=== PATIENT | female | born 1945 | race African-American/Black ===

== ENCOUNTER 2018-02-22 06:18 | Observation (INO) | payer OTHER ==
[2018-02-22 06:33] VITALS: BMI 24.0
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
[2018-02-22] MEDS ORDERED: ASPIRIN 325 MG TABLET PO ONE (08:25)
[2018-02-22] MEDS ORDERED: ASPIRIN 325 MG TABLET ONE (08:31)
[2018-02-22 08:56] LABS: HEMATOCRIT 30.5 % (32.4-45.2); HEMOGLOBIN 10.3 GM/dL (10.7-15.3); MCH 33.1 pg (25.7-33.7); MCHC 33.6 g/dl (32.0-36.0); MEAN CELL VOLUME 98.5 fl (80-96); MEAN PLT VOLUME 10.4 fl (7.5-11.1); PLATELET COUNT 235 K/MM3 (134-434); RDW 12.6 % (11.6-15.6); WHITE BLOOD COUNT 3.9 K/mm3 (4.0-10.0)
[2018-02-22 09:09] LABS: INR 1.79 (0.82-1.09); PROTHROMBIN TIME (PATIENT) 20.2 SEC (9.7-13.0)
[2018-02-22 09:12] LABS: ACTIVATED PTT 21.9 SECONDS (25.2-36.5)
[2018-02-22 09:57] LABS: CALCIUM 8.5 mg/dL (8.5-10.1); CHLORIDE 109 mmol/L (98-107); POTASSIUM 4.5 mmol/L (3.5-5.1); SODIUM 141 mmol/L (136-145)
[2018-02-22] MEDS: ACYCLOVIR 400 MG TABLET PO SCH ×2 (10:01→10:16)
[2018-02-22 10:06] LABS: ALK PHOS 56 U/L (45-117); ANION GAP 8 (8-16); BILIRUBIN,TOTAL 0.2 mg/dL (0.2-1.0); BLOOD UREA NITROGEN 36 mg/dL (7-18); CO2 24 mmol/L (21-32); CREATININE 1.5 mg/dL (0.55-1.02); GLUCOSE,RANDOM 110 mg/dL (74-106); SGOT/AST 34 U/L (15-37); SGPT/ALT 29 U/L (12-78); TOT PROT 7.8 g/dl (6.4-8.2)
[2018-02-22] MEDS ORDERED: valACYclovir HCL 1000 MG TABLET PO SCH (11:30)
[2018-02-22] MEDS ORDERED: SODIUM CHLORIDE 0.45% 1,000 ML IV SCH (11:30)
[2018-02-22] MEDS ORDERED: valACYclovir HCL 500 MG TABLET (FP) PO SCH (12:34)
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
[2018-02-22] MEDS ORDERED: valACYclovir HCL 500 MG TABLET (FP) ONE (12:43)
[2018-02-22] MEDS ORDERED: HEPARIN NA (PORCINE) 5,000 UNITS/ML 1ML VIAL IVPUSH PRN ×2 (13:27)
[2018-02-22] MEDS ORDERED: HEPARIN INFUSION - 25,000 UNITS/500 ML INFUS.BAG IVPB ONE (13:36)
[2018-02-22] MEDS: HEPARIN - 25,000 UNIT in SODIUM CHLORIDE 495 ML IV SCH (13:49)
[2018-02-22] MEDS: INSULIN SLIDING SCALE (NOVOLOG) 1 VIAL SQ SCH ×2 (17:03→21:37)
[2018-02-22] MEDS ORDERED: WARFARIN NA 10 MG TABLET (FP) PO SCH (18:00)
[2018-02-22] MEDS ORDERED: WARFARIN NA 5 MG TABLET (UD) ONE (18:14)
[2018-02-23] MEDS: INSULIN SLIDING SCALE (NOVOLOG) 1 VIAL SQ SCH ×2 (06:22→12:03)
[2018-02-23 07:11] LABS: HEMATOCRIT 29.8 % (32.4-45.2); HEMOGLOBIN 9.9 GM/dL (10.7-15.3); MCH 32.4 pg (25.7-33.7); MCHC 33.1 g/dl (32.0-36.0); MEAN CELL VOLUME 97.8 fl (80-96); MEAN PLT VOLUME 9.4 fl (7.5-11.1); PLATELET COUNT 151 K/MM3 (134-434); RBC 3.05 M/mm3 (3.60-5.2); RDW 12.8 % (11.6-15.6); WHITE BLOOD COUNT 3.5 K/mm3 (4.0-10.0)
[2018-02-23 07:25] LABS: INR 2.49 (0.82-1.09); PROTHROMBIN TIME (PATIENT) 28.1 SEC (9.7-13.0)
[2018-02-23 07:58] LABS: ACTIVATED PTT 125.1 SECONDS (25.2-36.5)
[2018-02-23 08:51] LABS: ALBUMIN 3.6 g/dl (3.4-5.0); ALK PHOS 54 U/L (45-117); ANION GAP 9 (8-16); BILIRUBIN,TOTAL 0.2 mg/dL (0.2-1.0); BLOOD UREA NITROGEN 29 mg/dL (7-18); CALCIUM 8.3 mg/dL (8.5-10.1); CHLORIDE 113 mmol/L (98-107); CO2 22 mmol/L (21-32); CREATININE 1.4 mg/dL (0.55-1.02); GLUCOSE,RANDOM 90 mg/dL (74-106); POTASSIUM 4.6 mmol/L (3.5-5.1); SGOT/AST 29 U/L (15-37); SGPT/ALT 28 U/L (12-78); SODIUM 144 mmol/L (136-145); TOT PROT 7.4 g/dl (6.4-8.2)
--- NOTE | 2018-02-23 09:14 | EKG ---
Test Reason : Blood Pressure : / mmHG Vent. Rate : 061 BPM Atrial Rate : 061 BPM P-R Int : 172 ms QRS Dur : 086 ms QT Int : 416 ms P-R-T Axes : 039 050 -28 degrees QTc Int : 418 ms NORMAL SINUS RHYTHM NONSPECIFIC T WAVE ABNORMALITY ABNORMAL ECG WHEN COMPARED WITH ECG OF 15-OCT-2014 10:10, COMPARED TO EKG NO SIGNIFICANT CHANGE IS FOUND Confirmed by JOSIE BRODY MD ([id number]) on 02/23/2018 9:14:11 AM Referred By: Confirmed By:JOSIE BRODY MD
[2018-02-23] MEDS ORDERED: metoPROLOL SUCCINATE 25 MG TAB.SR.24H (FP) PO SCH (10:00)
[2018-02-23] MEDS ORDERED: ASPIRIN 81 MG CHEWABLE TABLETS PO SCH (10:00)
[2018-02-23] MEDS ORDERED: LISINOPRIL 5 MG TABLET (FP) PO SCH (10:00)
[2018-02-23] MEDS ORDERED: PANTOPRAZOLE 40 MG TABLET (FP) PO SCH (10:00)
[2018-02-23] MEDS ORDERED: FUROSEMIDE 20 MG TABLET (FP) PO SCH (10:00)
[2018-02-23] MEDS ORDERED: ZINC OXIDE 20% TOPICAL OINTMENT 30 GM TUBE TP SCH (13:00)
[2018-02-23] MEDS: HEPARIN - 25,000 UNIT in SODIUM CHLORIDE 495 ML IV SCH (14:05)
[2018-02-23 14:10] VITALS: BP 147/73; PULSE 64; TEMP 98.2
--- NOTE | 2018-02-23 14:42 | DS ---
Physical Exam: SUBJECTIVE: Patient seen and examined at bedside. Pain well-controlled. No other complaints. OBJECTIVE: Vital Signs Period Temp Pulse Resp BP Sys/Leung Pulse Ox Last 24 Hr 97.9 F-98.5 F 51-65 16-20 121-158/49-87 100-100 PHYSICAL EXAM GENERAL: The patient is awake, alert, and fully oriented, in no acute distress. HEAD: Normal with no signs of trauma. EYES: PERRLA, EOMI, sclera anicteric, conjunctiva clear. ENT: Ears normal, nares patent, moist mucous membranes. NECK: Trachea midline, full range of motion, supple, no cervical LAD. LUNGS: Breath sounds equal, clear to auscultation bilaterally, no wheezes, no crackles, no accessory muscle use. HEART: Regular rate and rhythm, S1, S2 without murmur, rub or gallop. ABDOMEN: Soft, nontender, nondistended, normoactive bowel sounds, no guarding, no rebound, no hepatosplenomegaly, no masses. EXTREMITIES: 2+ pulses, warm, well-perfused, no edema. NEUROLOGICAL: Cranial nerves II through XII grossly intact. 5/5 strength x 4 extremities. Sensorium intact. Normal speech, gait not observed. PSYCH: Normal mood, normal affect. SKIN: Dermatitis of skin folds inferior to breasts b/l LABS Laboratory Results - last 24 hr 02/22/18 02/22/18 02/22/18 09:21 16:30 16:59 WBC RBC Hgb Hct MCV MCH MCHC RDW Plt Count MPV PT with INR INR PTT (Actin FS) Sodium Potassium Chloride Carbon Dioxide Anion Gap BUN Creatinine Creat Clearance w eGFR POC Glucometer 128.72243 Random Glucose Calcium Total Bilirubin AST ALT Alkaline Phosphatase CK-MB (CK-2) Troponin I 0.05 Total Protein Albumin 02/22/18 02/22/18 02/22/18 20:10 21:00 21:36 WBC RBC Hgb Hct MCV MCH MCHC RDW Plt Count MPV PT with INR INR PTT (Actin FS) 96.1 H D Sodium Potassium Chloride Carbon Dioxide Anion Gap BUN Creatinine Creat Clearance w eGFR POC Glucometer 110 Random Glucose Calcium Total Bilirubin AST ALT Alkaline Phosphatase CK-MB (CK-2) Troponin I 0.05 Total Protein Albumin 07/09/18 07/09/18 07/09/18 02:00 05:58 06:00 WBC 3.5 L RBC 3.05 L Hgb 9.9 L Hct 29.8 L MCV 97.8 H MCH 32.4 MCHC 33.1 RDW 12.8 Plt Count 151 D MPV 9.4 PT with INR INR PTT (Actin FS) Sodium Potassium Chloride Carbon Dioxide Anion Gap BUN Creatinine Creat Clearance w eGFR POC Glucometer 88 Random Glucose Calcium Total Bilirubin AST ALT Alkaline Phosphatase CK-MB (CK-2) Troponin I 0.06 H Total Protein Albumin 02/23/18 02/23/18 02/23/18 06:00 06:00 12:03 WBC RBC Hgb Hct MCV MCH MCHC RDW Plt Count MPV PT with INR 28.10 H INR 2.49 H D PTT (Actin FS) 125.1 H D Sodium 144 Potassium 4.6 Chloride 113 H Carbon Dioxide 22 Anion Gap 9 BUN 29 H Creatinine 1.4 H Creat Clearance w eGFR 37.18 POC Glucometer 85 Random Glucose 90 Calcium 8.3 L Total Bilirubin 0.2 AST 29 ALT 28 Alkaline Phosphatase 54 CK-MB (CK-2) Troponin I Total Protein 7.4 Albumin 3.6 HOSPITAL COURSE: Date of Admission:02/22/18 Patient is a 72 y/o F w/ PMHx HTN, HLD, DM2, mitral valve repair on coumadin, GIST tumor, afib, and CHF, p/w sharp b/l chest pain x 3 days, 9-10 in severity on presentation. EKG showed NSR, serial troponins negative. Dermatitis was noted at the skin fold under the breasts b/l. Patient was given acyclovir and valacyclovir on initial suspicion of herpes zoster, but this diagnosis was inconsistent with clinical evaluation. Patient is on coumadin for AFib/mitral valve repair, INR subtherapeutic on presentation, INR corrected to therapeutic range with administration of 2 heparin boluses + heparin drip, home dose of 10mg coumadin also given. Patient was given NS IVF. Pain gradually resolved. Patient was discharged after 1 day with referrals to her PCP and sporting goods salesperson. Date of Discharge: 02/23/18 Minutes to complete discharge: 41 <Melvin Santos - Last Filed: 02/23/18 14:45> Physical Exam: Patient is comfortable with no acute distress, Patient was prescribed Zinc oxide to be used under her breast. Also on admission patient had a sub- therapeutic INR, started on IV heparin drip, and given coumadin 10mg ,INR is 2.47, patient has no further chest pain. Patient can be discharged home and follow with her own sporting goods salesperson. <Kaden Sesay - Last Filed: 02/23/18 18:39> Discharge Summary Reason For Visit: HERPES ZOSTER, ACUTE CORONARY SYNDROME, HTN,ECOLI Current Active Problems Atrial fibrillation (Chronic) HTN (hypertension) (Chronic) - Home Medications Comprehensive Discharge Medication List: Ambulatory Orders Aspirin [ASA -] 81 mg PO DAILY 09/11/14 Furosemide [Lasix -] 20 mg PO DAILY #30 tablet 10/26/14 Metoprolol Succinate [Toprol XL -] 25 mg PO DAILY #30 tab.sr.24h 10/26/14 Aspirin [ASA -] 81 mg PO DAILY tab.chew 02/23/18 Imatinib Mesylate [Gleevec] 400 mg PO ACDIN 02/23/18 Lisinopril [Prinivil] 10 mg PO DAILY 02/23/18 Pravastatin Sodium [Pravachol -] 20 mg PO HS 02/23/18 Sitagliptin Phosphate [Januvia] 25 mg PO ACBK 02/23/18 Spironolactone 25 mg PO DAILY 02/23/18 Warfarin Na [Coumadin -] 10 mg PO DAILY@1800 tablet 02/23/18 Zinc Oxide 1 applic TP BID #1 tube 02/23/18 <Melvin Santos - Last Filed: 02/23/18 14:45> - Home Medications Comprehensive Discharge Medication List: Ambulatory Orders Aspirin [ASA -] 81 mg PO DAILY 09/11/14 Furosemide [Lasix -] 20 mg PO DAILY #30 tablet 10/26/14 Metoprolol Succinate [Toprol XL -] 25 mg PO DAILY #30 tab.sr.24h 10/26/14 Aspirin [ASA -] 81 mg PO DAILY tab.chew 02/23/18 Imatinib Mesylate [Gleevec] 400 mg PO ACDIN 02/23/18 Lisinopril [Prinivil] 10 mg PO DAILY 02/23/18 Pravastatin Sodium [Pravachol -] 20 mg PO HS 02/23/18 Sitagliptin Phosphate [Januvia] 25 mg PO ACBK 02/23/18 Spironolactone 25 mg PO DAILY 02/23/18 Warfarin Na [Coumadin -] 10 mg PO DAILY@1800 tablet 02/23/18 Zinc Oxide 1 applic TP BID #1 tube 02/23/18 <Kaden Sesay - Last Filed: 02/23/18 18:39> Condition: Stable - Instructions Diet, Activity, Other Instructions: You were hospitalized due to chest pain. You were given standard testing that showed that your chest pain was not due to a heart attack. You were given medications to relieve the skin irritation in the affected area. Your labs also showed that your anticoagulation medication needed to be adjusted, which was done. Referrals Please make an appointment with your sporting goods salesperson, Dr. Soares, within one week of discharge. A referral has also been made to your primary medical doctor , Dr. Wolf. Please also make an appointment with him within one week of discharge. Medical recommendations Please use the zinc oxide topical ointment you have been prescribed in the affected areas twice per day. Please drink plenty of fluids. If you experience any worsening chest pain, pain when breathing, difficulty breathing, change in vision or other sensation, or any other new symptoms, please return to the Emergency Department immediately. Referrals: Dionte Wolf MD [Primary Care Provider] - 1 Week Disposition: HOME This patient is new to me today: No Emergency Visit: No Critical Care patient: No - Discharge Referral Referred to [facility] Med P.C[facility] No <Melvin Santos - Last Filed: 02/23/18 14:45>
--- NOTE | 2018-02-23 15:04 | EKG ---
Test Reason : Blood Pressure : / mmHG Vent. Rate : 064 BPM Atrial Rate : 064 BPM P-R Int : 180 ms QRS Dur : 084 ms QT Int : 422 ms P-R-T Axes : -27 035 262 degrees QTc Int : 435 ms NORMAL SINUS RHYTHM T WAVE ABNORMALITY, CONSIDER INFERIOR ISCHEMIA T WAVE ABNORMALITY, CONSIDER ANTEROLATERAL ISCHEMIA ABNORMAL ECG WHEN COMPARED WITH ECG OF 22-FEB-2018 06:30, T WAVE VARIATION Confirmed by EVELINE CASAS MD ([id number]) on 02/23/2018 3:04:24 PM Referred By: NATE SCHULZ DR Confirmed By:EVELINE CASAS MD
== END 2018-02-23 15:17 | disposition home or self-care (01) ==
LOC: JER 06:18 → INTOOBSV 10:25 → UNDOADMOB 10:25 → JERBED 10:25 → J4S 19:06 → JERBED 22:26
PROVIDERS: ADMIT Internal Medicine; ATTEND Internal Medicine
PROC: 3E0337Z Introduction of Electrolytic and Water Balance Substance into Peripheral Vein, Percutaneous Approach (ICD-10-PCS; principal; 2018-02-22)
DX: I24.9 Acute ischemic heart disease, unspecified (principal); B02.9 Zoster without complications; I10 Essential (primary) hypertension; E11.9 Type 2 diabetes mellitus without complications; E78.5 Hyperlipidemia, unspecified; I48.2 Chronic atrial fibrillation; I50.9 Heart failure, unspecified; Z79.82 Long term (current) use of aspirin; Z95.828 Presence of other vascular implants and grafts; Z79.01 Long term (current) use of anticoagulants; Z95.2 Presence of prosthetic heart valve
CPT/HCPCS: 36415; 71045-TC-FY; 80053; 82550; 82553; 82962; 84484; 85027; 85610; 85730; 93005; 93010; 99283-25; G0378; J1644

== ENCOUNTER 2021-12-30 18:50 | Inpatient (IN) | payer OTHER ==
[2021-12-30 19:17] VITALS: BMI 24.0
[2021-12-30] MEDS ORDERED: ACETAMINOPHEN 500 MG TABLET (FP) PO ONE (19:45)
[2021-12-30] MEDS ORDERED: ACETAMINOPHEN 325 MG TABLET (FP) ONE (19:50)
[2021-12-30 20:19] LABS: VENOUS BASE EXCESS -2.5 mmol/L (-2-2); VENOUS O2 SATURATION 67.8 % (70-80); VENOUS PCO2 41.1 mmHg (38-52); VENOUS PH 7.362 (7.310-7.410)
[2021-12-30 20:20] LABS: BASO % 0.3 % (0-2.0); EOS % 0.6 % (0-4.5); HEMATOCRIT 35.5 % (32.4-45.2); HEMOGLOBIN 11.7 GM/dL (10.7-15.3); LYMPH % 9.5 % (8-40); MCH 29.8 pg (25.7-33.7); MEAN CELL VOLUME 90.4 fl (80-96); MEAN PLT VOLUME 8.9 fl (7.5-11.1); NEUT % 81.6 % (42.8-82.8); PLATELET COUNT 159 10^3/uL (134-434); RBC 3.93 M/mm3 (3.60-5.2); RDW 14.2 % (11.6-15.6); WHITE BLOOD COUNT 6.9 K/mm3 (4.0-10.0)
[2021-12-30 20:26] LABS: PROTHROMBIN TIME (PATIENT) 47.2 SEC (9.7-13.0)
[2021-12-30 20:29] LABS: ACTIVATED PTT 56.3 SECONDS (25.2-36.5); CHLORIDE 99 mmol/L (98-107); SODIUM 130 mmol/L (136-145)
[2021-12-30 20:32] LABS: CALCIUM 9.7 mg/dL (8.5-10.1)
[2021-12-30 20:33] LABS: BLOOD UREA NITROGEN 63.7 mg/dL (7-18); CO2 25 mmol/L (21-32); MAGNESIUM 2.4 mg/dL (1.8-2.4)
[2021-12-30 20:35] LABS: CREATININE 1.9 mg/dL (0.55-1.3); SGOT/AST 95 U/L (15-37)
[2021-12-30 20:37] LABS: BILIRUBIN,TOTAL 0.4 mg/dL (0.2-1); TOT PROT 8.9 g/dl (6.4-8.2)
[2021-12-30 20:38] LABS: ALK PHOS 68 U/L (45-117)
[2021-12-30 20:40] LABS: INR 4.05 (0.83-1.09)
[2021-12-30] MEDS ORDERED: SODIUM CHLORIDE 0.9% 500 ML INFUS.BAG IV ONE (20:41)
[2021-12-30 20:49] LABS: LACTIC ACID 2.3 mmol/L (0.4-2.0)
[2021-12-30 20:50] LABS: ANION GAP 6 MMOL/L (8-16); GLUCOSE,RANDOM 42 mg/dL (74-106); SGPT/ALT 41 U/L (13-61)
[2021-12-30] MEDS ORDERED: DEXTROSE 50%-WATER - 25 GM/50 ML VIAL IVPUSH ONE (20:58)
[2021-12-30] MEDS ORDERED: DEXTROSE 50%-WATER 25 GM/50 ML DISP.SYRIN ONE (21:04)
[2021-12-30] MEDS ORDERED: ASPIRIN 81 MG CHEWABLE TABLETS PO ONE (21:05)
[2021-12-30] MEDS ORDERED: ASPIRIN 81 MG CHEWABLE TABLETS ONE (21:17)
[2021-12-30 23:21] LABS: CHLORIDE 102 mmol/L (98-107); SODIUM 131 mmol/L (136-145)
[2021-12-30 23:22] LABS: ANION GAP 10 MMOL/L (8-16); BLOOD UREA NITROGEN 60.7 mg/dL (7-18); CALCIUM 8.6 mg/dL (8.5-10.1); CO2 20 mmol/L (21-32); GLUCOSE,RANDOM 104 mg/dL (74-106)
[2021-12-30 23:26] LABS: CREATININE 1.6 mg/dL (0.55-1.3)
[2021-12-31 04:28] LABS: ALBUMIN 3.6 g/dl (3.4-5.0); BLOOD UREA NITROGEN 56.1 mg/dL (7-18); CALCIUM 9.1 mg/dL (8.5-10.1)
[2021-12-31 04:31] LABS: CREATININE 1.5 mg/dL (0.55-1.3)
[2021-12-31 04:33] LABS: BILIRUBIN,TOTAL 0.3 mg/dL (0.2-1); TOT PROT 7.6 g/dl (6.4-8.2)
[2021-12-31 06:51] LABS: BASO % 0.3 % (0-2.0); EOS % 2.4 % (0-4.5); HEMATOCRIT 32.3 % (32.4-45.2); HEMOGLOBIN 10.7 GM/dL (10.7-15.3); LYMPH % 24.4 % (8-40); MCH 29.8 pg (25.7-33.7); MEAN CELL VOLUME 90.4 fl (80-96); MEAN PLT VOLUME 8.8 fl (7.5-11.1); NEUT % 63.9 % (42.8-82.8); PLATELET COUNT 136 10^3/uL (134-434); RBC 3.58 M/mm3 (3.60-5.2); RDW 14.1 % (11.6-15.6); WHITE BLOOD COUNT 4.4 K/mm3 (4.0-10.0)
[2021-12-31] MEDS: INSULIN SLIDING SCALE (NOVOLOG) 1 VIAL SQ SCH ×3 (06:59→21:09)
[2021-12-31 07:01] LABS: ACTIVATED PTT 54.4 SECONDS (25.2-36.5)
[2021-12-31 07:03] LABS: MAGNESIUM 2.2 mg/dL (1.8-2.4)
[2021-12-31 07:05] LABS: ALBUMIN 3.5 g/dl (3.4-5.0); BLOOD UREA NITROGEN 52.1 mg/dL (7-18)
[2021-12-31 07:07] LABS: CREATININE 1.5 mg/dL (0.55-1.3); TOT PROT 7.1 g/dl (6.4-8.2)
[2021-12-31 07:09] LABS: BILIRUBIN,TOTAL 0.3 mg/dL (0.2-1)
[2021-12-31 07:13] LABS: INR 4.88 (0.83-1.09)
[2021-12-31] MEDS ORDERED: DEXTROSE 50%-WATER - 25 GM/50 ML VIAL IVPUSH ONE (07:30)
[2021-12-31] MEDS ORDERED: ASPIRIN 81 MG CHEWABLE TABLETS PO SCH (10:00)
[2021-12-31] MEDS ORDERED: metoPROLOL SUCCINATE 25 MG TAB.SR.24H (FP) PO SCH (10:00)
[2021-12-31] MEDS ORDERED: metoPROLOL SUCCINATE 25 MG TAB.SR.24H (FP) ONE (10:25)
[2021-12-31] MEDS ORDERED: ASPIRIN 81 MG CHEWABLE TABLETS ONE (10:25)
[2021-12-31] MEDS ORDERED: ATORVASTATIN CA 10 MG TABLET (FP) PO SCH (22:00)
[2022-01-01] MEDS: INSULIN SLIDING SCALE (NOVOLOG) 1 VIAL SQ SCH ×4 (06:06→21:20)
[2022-01-01 09:03] LABS: BASO % 0.6 % (0-2.0); HEMATOCRIT 32.6 % (32.4-45.2); HEMOGLOBIN 10.8 GM/dL (10.7-15.3); LYMPH % 31.4 % (8-40); MEAN CELL VOLUME 90.8 fl (80-96); MEAN PLT VOLUME 8.9 fl (7.5-11.1); MONO % 17.2 % (3.8-10.2); NEUT % 47.8 % (42.8-82.8); PLATELET COUNT 132 10^3/uL (134-434); RBC 3.59 M/mm3 (3.60-5.2); RDW 14.3 % (11.6-15.6); WHITE BLOOD COUNT 3.1 K/mm3 (4.0-10.0)
[2022-01-01 09:10] LABS: INR 3.2 (0.83-1.09); PROTHROMBIN TIME (PATIENT) 37.2 SEC (9.7-13.0)
[2022-01-01 09:13] LABS: ACTIVATED PTT 48.8 SECONDS (25.2-36.5)
[2022-01-01 09:40] LABS: ALBUMIN 3.4 g/dl (3.4-5.0); BLOOD UREA NITROGEN 43.6 mg/dL (7-18); MAGNESIUM 2.4 mg/dL (1.8-2.4)
[2022-01-01 09:44] LABS: BILIRUBIN,TOTAL 0.4 mg/dL (0.2-1); CREATININE 1.6 mg/dL (0.55-1.3); PHOSPHOROUS 2.9 mg/dL (2.5-4.9); TOT PROT 6.8 g/dl (6.4-8.2)
[2022-01-01] MEDS: metoPROLOL SUCCINATE 25 MG TAB.SR.24H (FP) PO SCH (10:37)
[2022-01-01] MEDS: ASPIRIN 81 MG CHEWABLE TABLETS PO SCH (10:38)
[2022-01-01] MEDS ORDERED: WARFARIN NA 2 MG TABLET PO ONE (18:00)
[2022-01-01] MEDS: ATORVASTATIN CA 10 MG TABLET (FP) PO SCH (21:19)
[2022-01-02] MEDS: INSULIN SLIDING SCALE (NOVOLOG) 1 VIAL SQ SCH ×4 (06:24→21:26)
[2022-01-02 09:07] LABS: BASO % 0.3 % (0-2.0); EOS % 1.3 % (0-4.5); HEMATOCRIT 31.2 % (32.4-45.2); HEMOGLOBIN 10.2 GM/dL (10.7-15.3); LYMPH % 18.3 % (8-40); MCH 29.9 pg (25.7-33.7); MCHC 32.7 g/dl (32.0-36.0); MEAN CELL VOLUME 91.3 fl (80-96); MEAN PLT VOLUME 9.1 fl (7.5-11.1); MONO % 12.1 % (3.8-10.2); PLATELET COUNT 131 10^3/uL (134-434); RBC 3.42 M/mm3 (3.60-5.2); RDW 13.9 % (11.6-15.6); WHITE BLOOD COUNT 4.8 K/mm3 (4.0-10.0)
[2022-01-02 09:13] LABS: INR 1.99 (0.83-1.09); PROTHROMBIN TIME (PATIENT) 23.1 SEC (9.7-13.0)
[2022-01-02] MEDS ORDERED: REGADENOSON 0.4 MG/5 ML PRE-FILLED SYRINGE IVPUSH ONE ×2 (10:45→10:54)
[2022-01-02 10:55] LABS: BLOOD UREA NITROGEN 38.6 mg/dL (7-18); MAGNESIUM 2.4 mg/dL (1.8-2.4)
[2022-01-02 10:56] LABS: ALBUMIN 3.5 g/dl (3.4-5.0)
[2022-01-02 10:57] LABS: CREATININE 1.5 mg/dL (0.55-1.3); PHOSPHOROUS 2.8 mg/dL (2.5-4.9)
[2022-01-02 11:03] LABS: BILIRUBIN,TOTAL 0.3 mg/dL (0.2-1)
[2022-01-02] MEDS: metoPROLOL SUCCINATE 25 MG TAB.SR.24H (FP) PO SCH (12:44)
[2022-01-02] MEDS: ASPIRIN 81 MG CHEWABLE TABLETS PO SCH (12:44)
[2022-01-02] MEDS ORDERED: WARFARIN NA 5 MG, WARFARIN NA 2 MG PO SCH (18:00)
[2022-01-02] MEDS ORDERED: WARFARIN NA 7.5 MG TABLET PO SCH (18:00)
[2022-01-02] MEDS: ATORVASTATIN CA 10 MG TABLET (FP) PO SCH (21:20)
[2022-01-03] MEDS: INSULIN SLIDING SCALE (NOVOLOG) 1 VIAL SQ SCH ×2 (06:33→11:44)
[2022-01-03] MEDS ORDERED: INSULIN (NOVOLOG) ASPART 100 UNITS/ML 10ML VIAL ONE (07:00)
[2022-01-03 10:23] LABS: BASO % 0.5 % (0-2.0); EOS % 3.6 % (0-4.5); HEMATOCRIT 34.2 % (32.4-45.2); HEMOGLOBIN 11.1 GM/dL (10.7-15.3); MCH 29.9 pg (25.7-33.7); MCHC 32.5 g/dl (32.0-36.0); MEAN CELL VOLUME 92.1 fl (80-96); MEAN PLT VOLUME 9.4 fl (7.5-11.1); MONO % 9.6 % (3.8-10.2); NEUT % 57.3 % (42.8-82.8); PLATELET COUNT 153 10^3/uL (134-434); RBC 3.71 M/mm3 (3.60-5.2); RDW 13.9 % (11.6-15.6); WHITE BLOOD COUNT 4.1 K/mm3 (4.0-10.0)
[2022-01-03] MEDS: ASPIRIN 81 MG CHEWABLE TABLETS PO SCH (10:23)
[2022-01-03] MEDS: metoPROLOL SUCCINATE 25 MG TAB.SR.24H (FP) PO SCH (10:23)
[2022-01-03 10:29] LABS: HEMATOCRIT 34.3 % (32.4-45.2); HEMOGLOBIN 11.2 GM/dL (10.7-15.3); INR 1.94 (0.83-1.09); MCHC 32.6 g/dl (32.0-36.0); MEAN CELL VOLUME 92.2 fl (80-96); MEAN PLT VOLUME 9.2 fl (7.5-11.1); PLATELET COUNT 151 10^3/uL (134-434); PROTHROMBIN TIME (PATIENT) 22.5 SEC (9.7-13.0); RBC 3.72 M/mm3 (3.60-5.2); RDW 14.3 % (11.6-15.6); WHITE BLOOD COUNT 4.1 K/mm3 (4.0-10.0)
[2022-01-03 10:31] LABS: ACTIVATED PTT 32.5 SECONDS (25.2-36.5)
[2022-01-03 10:49] LABS: CALCIUM 9.1 mg/dL (8.5-10.1)
[2022-01-03 10:50] LABS: ALBUMIN 3.8 g/dl (3.4-5.0); BLOOD UREA NITROGEN 37.9 mg/dL (7-18); MAGNESIUM 2.3 mg/dL (1.8-2.4)
[2022-01-03 10:53] LABS: CREATININE 1.6 mg/dL (0.55-1.3); PHOSPHOROUS 2.4 mg/dL (2.5-4.9)
[2022-01-03 10:54] LABS: BILIRUBIN,TOTAL 0.4 mg/dL (0.2-1)
[2022-01-03 10:55] LABS: TOT PROT 7.8 g/dl (6.4-8.2)
[2022-01-03] MEDS ORDERED: ENOXAPARIN NA (PORCINE) 80 MG/0.8 ML DISP.SYRIN SQ ONE (11:02)
[2022-01-03] MEDS ORDERED: SODIUM PHOSPHATE - 30 MM in SODIUM CHLORIDE 250 ML IVPB ONE (13:48)
[2022-01-03] MEDS ORDERED: NAPH,MB-DB/K PH,MBDB POWDER PACKET PO ONE (13:57)
[2022-01-03 14:18] VITALS: BP 150/62; PULSE 61; TEMP 97.9
== END 2022-01-03 16:20 | disposition home or self-care (01) | DRG 300 ==
LOC: JER 18:50 → JERBED 21:46 → OBSVTOIN 12-31 01:09 → J6S 12-31 16:32
PROVIDERS: ADMIT Hospitalist; ATTEND Internal Medicine
DX: E11.51 Type 2 diabetes mellitus with diabetic peripheral angiopathy without gangrene (principal); E87.1 Hypo-osmolality and hyponatremia; I13.0 Hypertensive heart and chronic kidney disease with heart failure and stage 1 through stage 4 chronic kidney disease, or unspecified chronic kidney disease; I50.22 Chronic systolic (congestive) heart failure; E87.2 Acidosis; E11.22 Type 2 diabetes mellitus with diabetic chronic kidney disease; E11.649 Type 2 diabetes mellitus with hypoglycemia without coma; R79.1 Abnormal coagulation profile; I77.1 Stricture of artery; E78.5 Hyperlipidemia, unspecified
CPT/HCPCS: 0241U-QW; 36415; 71045-TC-FY; 78452-TC; 80048; 80053; 80061; 82550; 82553; 82728; 82803; 82962; 83036; 83540; 83550; 83605; 83735; 84100; 84443; 84484; 85025; 85027; 85610; 85730; 93005; 93010; 93017; 93306-TC; 93922; 93925-TC; 99285-25; A9502; G0378; J2785

== ENCOUNTER 2023-06-05 14:44 | Inpatient (IN) | payer OTHER ==
[2023-06-05] MEDS ORDERED: LABETALOL HCL 5 MG/1 ML (100MG/20 ML VIAL) IVPUSH ONE (16:18)
[2023-06-05] MEDS ORDERED: LABETALOL HCL 20 MG/4 ML VIAL ONE (16:37)
[2023-06-05 17:00] LABS: BASO % 0.6 % (0-2.0); EOS % 3.3 % (0-4.5); HEMATOCRIT 35.1 % (32.4-45.2); LYMPH % 24.9 % (8-40); MCH 29.2 pg (25.7-33.7); MCHC 34.4 g/dl (32.0-36.0); MEAN CELL VOLUME 85.1 fl (80-96); MEAN PLT VOLUME 9.6 fl (7.5-11.1); MONO % 12.5 % (3.8-10.2); NEUT % 58.7 % (42.8-82.8); PLATELET COUNT 167 10^3/uL (134-434); RBC 4.12 M/mm3 (3.60-5.2); RDW 15.4 % (11.6-15.6); WHITE BLOOD COUNT 4.4 K/mm3 (4.0-10.0)
[2023-06-05 17:21] LABS: POTASSIUM 3.9 mmol/L (3.5-5.1)
[2023-06-05 17:23] LABS: ALBUMIN 3.5 g/dl (3.4-5.0); BLOOD UREA NITROGEN 27.4 mg/dL (7-18); CALCIUM 9.3 mg/dL (8.5-10.1); MAGNESIUM 2.1 mg/dL (1.8-2.4)
[2023-06-05 17:26] LABS: CREATININE 1.2 mg/dL (0.55-1.3)
[2023-06-05 17:28] LABS: BILIRUBIN,TOTAL 0.4 mg/dL (0.2-1); TOT PROT 7.9 g/dl (6.4-8.2)
[2023-06-05] MEDS ORDERED: ASPIRIN 81 MG CHEWABLE TABLETS PO ONE (17:43)
[2023-06-05] MEDS ORDERED: ASPIRIN 81 MG CHEWABLE TABLETS ONE (18:19)
[2023-06-05 18:57] LABS: EPI CELLS 6 /uL (0-25.1); HYALINE CASTS 0 /uL (0-3.1); PH,URINE 5.5 (5.0-8.0); URINE APPEARANCE CLEAR; URINE BACTERIA 24 /uL (0-1359); URINE BILIRUBIN NEGATIVE (NEGATIVE); URINE COLOR YELLOW; URINE GLUCOSE (UA) 3+ (NEGATIVE); URINE KETONE NEGATIVE (NEGATIVE); URINE LEUK ESTERASE NEGATIVE (NEGATIVE); URINE NITRITE NEGATIVE (NEGATIVE); URINE PROTEIN 1+ (NEGATIVE); URINE RBC 30 /uL (0-23.9); URINE UROBILINOGEN 0.2 mg/dL (0.2-1.0); URINE WBC 6 /uL (0-25.8)
[2023-06-05] MEDS ORDERED: LISINOPRIL 5 MG TABLET ONE (23:08)
[2023-06-05] MEDS ORDERED: LISINOPRIL 20 MG TABLET ONE (23:58)
[2023-06-06] MEDS: LISINOPRIL 20 MG TABLET PO SCH ×2 (00:01→12:57)
[2023-06-06] MEDS ORDERED: HYDROCHLOROTHIAZIDE 25 MG TABLET (FP) ONE (06:17)
[2023-06-06] MEDS ORDERED: HYDROCHLOROTHIAZIDE 12.5 MG CAPSULE (FP) PO SCH ×2 (07:00→10:10)
[2023-06-06] MEDS: EMPAGLIFLOZIN (JARDIANCE) 10 MG TABLET PO SCH (08:52)
[2023-06-06] MEDS ORDERED: metoPROLOL SUCCINATE 25 MG TAB.SR.24H (FP) PO SCH (10:00)
[2023-06-06 10:24] LABS: HEMATOCRIT 39.1 % (32.4-45.2); HEMOGLOBIN 12.7 GM/dL (10.7-15.3); MCH 28.4 pg (25.7-33.7); MCHC 32.6 g/dl (32.0-36.0); MEAN CELL VOLUME 87.3 fl (80-96); MEAN PLT VOLUME 9.8 fl (7.5-11.1); PLATELET COUNT 160 10^3/uL (134-434); RBC 4.48 M/mm3 (3.60-5.2); RDW 15.5 % (11.6-15.6); WHITE BLOOD COUNT 3.6 K/mm3 (4.0-10.0)
[2023-06-06 10:37] LABS: POTASSIUM 4.1 mmol/L (3.5-5.1)
[2023-06-06 10:43] LABS: ALBUMIN 3.4 g/dl (3.4-5.0); CHOLESTEROL 144 mg/dL (50-200)
[2023-06-06 10:44] LABS: BLOOD UREA NITROGEN 29.9 mg/dL (7-18)
[2023-06-06 10:45] LABS: LDL CHOLESTEROL (ONLY SJRH) 76 mg/dL (5-100)
[2023-06-06 10:46] LABS: CREATININE 1.4 mg/dL (0.55-1.3); HDL CHOLESTEROL 63 mg/dL (40-60); PHOSPHOROUS 3.3 mg/dL (2.5-4.9)
[2023-06-06 10:47] LABS: BILIRUBIN,TOTAL 0.5 mg/dL (0.2-1)
[2023-06-06] MEDS: INSULIN SLIDING SCALE (NOVOLOG) 1 VIAL SQ SCH ×4 (12:39→22:26)
[2023-06-06] MEDS ORDERED: APIXABAN 5 MG TABLET ONE (12:41)
[2023-06-06] MEDS ORDERED: GABAPENTIN 100 MG CAPSULE ONE (12:42)
[2023-06-06] MEDS: APIXABAN 5 MG TABLET PO SCH ×2 (12:54→22:24)
[2023-06-06] MEDS: GABAPENTIN 100 MG CAPSULE PO SCH ×2 (12:54→22:25)
[2023-06-06 18:16] VITALS: BMI 23.0
[2023-06-07] MEDS: HYDROCHLOROTHIAZIDE 25 MG TABLET (FP) PO SCH (06:30)
[2023-06-07] MEDS: INSULIN SLIDING SCALE (NOVOLOG) 1 VIAL SQ SCH ×4 (06:31→23:06)
[2023-06-07] MEDS: EMPAGLIFLOZIN (JARDIANCE) 10 MG TABLET PO SCH (06:56)
[2023-06-07 07:02] LABS: BASO % 0.6 % (0-2.0); EOS % 5.4 % (0-4.5); HEMATOCRIT 34.9 % (32.4-45.2); HEMOGLOBIN 11.5 GM/dL (10.7-15.3); MCH 28.5 pg (25.7-33.7); MCHC 32.9 g/dl (32.0-36.0); MEAN CELL VOLUME 86.7 fl (80-96); MEAN PLT VOLUME 9.3 fl (7.5-11.1); MONO % 13.5 % (3.8-10.2); NEUT % 51.5 % (42.8-82.8); PLATELET COUNT 173 10^3/uL (134-434); RBC 4.02 M/mm3 (3.60-5.2); RDW 14.9 % (11.6-15.6); WHITE BLOOD COUNT 3.4 K/mm3 (4.0-10.0)
[2023-06-07 07:15] LABS: POTASSIUM 3.8 mmol/L (3.5-5.1)
[2023-06-07 07:18] LABS: ALBUMIN 3.4 g/dl (3.4-5.0)
[2023-06-07 07:21] LABS: CREATININE 1.4 mg/dL (0.55-1.3)
[2023-06-07 07:22] LABS: BILIRUBIN,TOTAL 0.4 mg/dL (0.2-1); TOT PROT 7.6 g/dl (6.4-8.2)
[2023-06-07 07:27] LABS: N-TERMINAL BNP 1138.3 pg/ml (5-450)
[2023-06-07] MEDS: amLODIPine BESYLATE 5 MG TABLET (FP) PO SCH ×2 (08:58→10:13)
[2023-06-07] MEDS: metoPROLOL SUCCINATE 25 MG TAB.SR.24H (FP) PO SCH (09:04)
[2023-06-07] MEDS: LISINOPRIL 20 MG TABLET PO SCH (09:04)
[2023-06-07] MEDS: GABAPENTIN 100 MG CAPSULE PO SCH ×2 (09:04→21:42)
[2023-06-07] MEDS: APIXABAN 5 MG TABLET PO SCH ×2 (09:05→21:43)
[2023-06-08] MEDS: INSULIN SLIDING SCALE (NOVOLOG) 1 VIAL SQ SCH ×4 (06:23→21:31)
[2023-06-08] MEDS: HYDROCHLOROTHIAZIDE 25 MG TABLET (FP) PO SCH (06:29)
[2023-06-08] MEDS: EMPAGLIFLOZIN (JARDIANCE) 10 MG TABLET PO SCH (06:29)
[2023-06-08 07:27] LABS: BASO % 0.6 % (0-2.0); EOS % 5.2 % (0-4.5); HEMATOCRIT 36.5 % (32.4-45.2); HEMOGLOBIN 11.9 GM/dL (10.7-15.3); LYMPH % 34.9 % (8-40); MCH 28.4 pg (25.7-33.7); MCHC 32.7 g/dl (32.0-36.0); MEAN PLT VOLUME 9.5 fl (7.5-11.1); MONO % 16.1 % (3.8-10.2); NEUT % 43.2 % (42.8-82.8); PLATELET COUNT 177 10^3/uL (134-434); RBC 4.19 M/mm3 (3.60-5.2); RDW 15.3 % (11.6-15.6); WHITE BLOOD COUNT 3.6 K/mm3 (4.0-10.0)
[2023-06-08 07:48] LABS: POTASSIUM 3.9 mmol/L (3.5-5.1)
[2023-06-08 07:56] LABS: ALBUMIN 3.4 g/dl (3.4-5.0); BLOOD UREA NITROGEN 30.8 mg/dL (7-18)
[2023-06-08 07:58] LABS: CREATININE 1.5 mg/dL (0.55-1.3)
[2023-06-08 07:59] LABS: BILIRUBIN,TOTAL 0.6 mg/dL (0.2-1)
[2023-06-08 08:00] LABS: TOT PROT 7.9 g/dl (6.4-8.2)
[2023-06-08] MEDS: LISINOPRIL 20 MG TABLET PO SCH (10:42)
[2023-06-08] MEDS: GABAPENTIN 100 MG CAPSULE PO SCH ×2 (10:42→21:33)
[2023-06-08] MEDS: amLODIPine BESYLATE 5 MG TABLET (FP) PO SCH (10:43)
[2023-06-08] MEDS: APIXABAN 5 MG TABLET PO SCH ×2 (10:43→21:33)
[2023-06-08] MEDS: metoPROLOL SUCCINATE 25 MG TAB.SR.24H (FP) PO SCH (10:43)
[2023-06-09] MEDS: INSULIN SLIDING SCALE (NOVOLOG) 1 VIAL SQ SCH ×4 (06:22→22:33)
[2023-06-09] MEDS: EMPAGLIFLOZIN (JARDIANCE) 10 MG TABLET PO SCH (06:27)
[2023-06-09] MEDS: HYDROCHLOROTHIAZIDE 25 MG TABLET (FP) PO SCH (06:28)
[2023-06-09 07:27] LABS: HEMATOCRIT 38.6 % (32.4-45.2); HEMOGLOBIN 12.6 GM/dL (10.7-15.3); MCH 28.7 pg (25.7-33.7); MCHC 32.5 g/dl (32.0-36.0); MEAN CELL VOLUME 88.1 fl (80-96); MEAN PLT VOLUME 9.5 fl (7.5-11.1); PLATELET COUNT 165 10^3/uL (134-434); RBC 4.38 M/mm3 (3.60-5.2); RDW 15.5 % (11.6-15.6); WHITE BLOOD COUNT 3.2 K/mm3 (4.0-10.0)
[2023-06-09 07:37] LABS: ALBUMIN 3.3 g/dl (3.4-5.0); BLOOD UREA NITROGEN 34.2 mg/dL (7-18); CALCIUM 8.8 mg/dL (8.5-10.1)
[2023-06-09 07:41] LABS: CREATININE 1.6 mg/dL (0.55-1.3)
[2023-06-09 07:42] LABS: BILIRUBIN,TOTAL 0.3 mg/dL (0.2-1); TOT PROT 7.8 g/dl (6.4-8.2)
[2023-06-09] MEDS: GABAPENTIN 100 MG CAPSULE PO SCH ×2 (09:59→22:29)
[2023-06-09] MEDS: LISINOPRIL 20 MG TABLET PO SCH (09:59)
[2023-06-09] MEDS: amLODIPine BESYLATE 5 MG TABLET (FP) PO SCH (10:00)
[2023-06-09] MEDS ORDERED: ERGOCALCIFEROL (VIT D2) 50,000 UNIT (1.25 MG) CAPSULE PO SCH (10:00)
[2023-06-09] MEDS: APIXABAN 5 MG TABLET PO SCH ×2 (10:00→22:29)
[2023-06-09] MEDS: metoPROLOL SUCCINATE 25 MG TAB.SR.24H (FP) PO SCH (10:00)
[2023-06-10 01:18] VITALS: RESP 18
[2023-06-10] MEDS: INSULIN SLIDING SCALE (NOVOLOG) 1 VIAL SQ SCH ×3 (06:04→17:26)
[2023-06-10] MEDS: HYDROCHLOROTHIAZIDE 25 MG TABLET (FP) PO SCH (06:06)
[2023-06-10] MEDS: EMPAGLIFLOZIN (JARDIANCE) 10 MG TABLET PO SCH (06:06)
[2023-06-10 08:32] LABS: HEMATOCRIT 38.1 % (32.4-45.2); HEMOGLOBIN 12.2 GM/dL (10.7-15.3); MEAN CELL VOLUME 87.6 fl (80-96); MEAN PLT VOLUME 9.6 fl (7.5-11.1); PLATELET COUNT 175 10^3/uL (134-434); RBC 4.35 M/mm3 (3.60-5.2); RDW 15.4 % (11.6-15.6); WHITE BLOOD COUNT 3.2 K/mm3 (4.0-10.0)
[2023-06-10 08:37] LABS: POTASSIUM 3.7 mmol/L (3.5-5.1)
[2023-06-10 08:44] LABS: CALCIUM 9.1 mg/dL (8.5-10.1)
[2023-06-10 08:45] LABS: ALBUMIN 3.6 g/dl (3.4-5.0); BLOOD UREA NITROGEN 39.8 mg/dL (7-18)
[2023-06-10 08:48] LABS: CREATININE 1.4 mg/dL (0.55-1.3)
[2023-06-10 08:49] LABS: TOT PROT 8.1 g/dl (6.4-8.2)
[2023-06-10 08:52] LABS: BILIRUBIN,TOTAL 0.4 mg/dL (0.2-1)
[2023-06-10] MEDS ORDERED: REGADENOSON 0.4 MG/5 ML PRE-FILLED SYRINGE IVPUSH ONE ×2 (09:26→09:45)
[2023-06-10] MEDS: amLODIPine BESYLATE 5 MG TABLET (FP) PO SCH (12:52)
[2023-06-10] MEDS: GABAPENTIN 100 MG CAPSULE PO SCH (12:52)
[2023-06-10] MEDS: APIXABAN 5 MG TABLET PO SCH (12:52)
[2023-06-10] MEDS: metoPROLOL SUCCINATE 25 MG TAB.SR.24H (FP) PO SCH (12:52)
[2023-06-10 15:57] VITALS: BP 159/65; PULSE 67; TEMP 97.9
[2023-06-13 14:11] LABS: RENIN ACTIVITY(PRA) 0.284 ng/mL/hr (0.167-5.380)
== END 2023-06-10 17:51 | disposition home or self-care (01) | DRG 305 ==
LOC: JER 14:44 → JERBED 20:12 → J4W 06-06 17:51 → OBSVTOIN 06-09 09:31
PROVIDERS: ADMIT Internal Medicine; ATTEND Internal Medicine
DX: I16.0 Hypertensive urgency (principal); I50.32 Chronic diastolic (congestive) heart failure; C49.A9 Gastrointestinal stromal tumor of other sites; I13.0 Hypertensive heart and chronic kidney disease with heart failure and stage 1 through stage 4 chronic kidney disease, or unspecified chronic kidney disease; E11.22 Type 2 diabetes mellitus with diabetic chronic kidney disease; N18.9 Chronic kidney disease, unspecified; E78.5 Hyperlipidemia, unspecified; I48.91 Unspecified atrial fibrillation; N31.9 Neuromuscular dysfunction of bladder, unspecified; R31.9 Hematuria, unspecified; R79.89 Other specified abnormal findings of blood chemistry; Z95.2 Presence of prosthetic heart valve; Z89.432 Acquired absence of left foot; Z86.718 Personal history of other venous thrombosis and embolism
CPT/HCPCS: 36415; 71045-TC-FY; 76700-TC; 78452-TC; 80053; 80061; 81003; 82088; 82533; 82962; 83036; 83735; 83880; 84100; 84244; 84439; 84443; 84484; 85025; 85027; 86704; 86706; 86803; 87086; 87340; 87517; 87522; 93005; 93010; 93017; 93306-TC; 99291; A9502; G0378; J2785